=== PATIENT | male | born 1995 | race Caucasian/White ===

== ENCOUNTER 2017-05-05 11:47 | Emergency (ER) | payer OTHER ==
[~2017-05-05] VITALS: Wt 72.6 kg
[~2017-05-05 11:47] MED LIST: BACTRIM DS 8001 TAB PO; BENTYL; CLINDAMYCIN HC300 MG PO; CYCLOBENZAPRINE5 M3 PO; DOXYCYCLINE100 M3 PO; INTUNIV2 MG PO; KEFLEX500 MG PO; LIQUID PRED5 MG/5 ML PO; LOMOTIL 0.025 M1 TA1 PO; MEDROL DOSEPAK4 MG PO; MULTI VIT W/FLU1 CTB PO; Motrin,Rufen800 MG PO; NORCO 325 MG-51 TAB PO; NORCO 5-325 TA1 EACH PO; Orphenadrine C100 MG PO; PEN-VK500 MG PO; PERCOCET 325 MG1 TA2 PO; PERIACTIN2 MG/5ML PO; ULTRAM50 MG PO; VYVANSE20 MG PO; VYVANSE30 MG PO; ZANTAC150 MG PO; ZITHROMAX Z PA250 MG PO; ZOFRAN ODT4 MG SL; [UNRECOGNIZED DRUG - OTHER]
[2017-05-05] MEDS ORDERED: AMOXICILLIN500 M2 PO (12:07)
== END 2017-05-05 12:52 | disposition home or self-care (01) ==
LOC: ED 11:47
DX: K08.89 Other specified disorders of teeth and supporting structures (principal); R51 Headache; G43.909 Migraine, unspecified, not intractable, without status migrainosus

== ENCOUNTER 2017-05-27 18:55 | Emergency (ER) | payer OTHER ==
[~2017-05-27] VITALS: Ht 182 cm; Wt 70.3 kg
[~2017-05-27 18:55] MED LIST changes: +AMOXICILLIN500 M2 PO
[2017-05-27 19:41] LABS: BASO # 0.1 10*3/uL (0.0-0.1); BASO % 0.5 % (0.0-1.0); EOS # 0.1 10*3/uL (0.0-0.4); EOS % 1.1 % (1.0-4.0); HEMATOCRIT 41.5 % (42.0-52.0); HEMOGLOBIN 14.4 g/dl (14.0-18.0); LYMPH # 2.9 10*3/uL (1.3-4.4); LYMPH % 28.4 % (27.0-41.0); MEAN CELL VOLUME 86.5 fl (80.0-94.0); MEAN CORPUSCULAR HGB CONC 34.7 g/dl (33.0-37.0); MONO # 0.5 10*3/uL (0.1-1.0); MONO % 5.2 % (3.0-9.0); NEUT # 6.7 10*3/uL (2.3-7.9); NEUT % 64.4 % (47.0-73.0); PLATELET COUNT AUTOMATED 148 10*3/uL (130-400); RED CELL DISTRI WIDTH 12.5 % (0-14.5); WHITE BLOOD COUNT 10.4 10*3/uL (4.8-10.8)
[2017-05-27 20:03] LABS: BILIRUBIN NEGATIVE (NEGATIVE); BLOOD NEGATIVE (NEGATIVE); CLARITY CLEAR (CLEAR); COLOR YELLOW (YELLOW); GLUCOSE NEGATIVE (NEGATIVE); KETONE NEGATIVE (NEGATIVE); LEUKO ESTERASE NEGATIVE (NEGATIVE); NITRITE NEGATIVE (NEGATIVE); PH 5.5 (5.0-9.0); SPECIFIC GRAVITY <= 1.005 (1.005-1.030); UROBILINOGEN 0.2 E.U./dl (0.2-1.0)
[2017-05-27 20:04] LABS: ACETAMINOPHEN (TYLENOL) < 2.0 ug/ml (10-30); ALBUMIN 3.8 gm/dl (3.1-4.5); ALKALINE PHOSPHATASE 52 U/L (45-117); BUN 11 mg/dl (7-24); CHLORIDE 105 mmol/L (98-107); ETHYL ALCOHOL < 3.0 mg/dl (<3); POTASSIUM 3.3 mmol/L (3.5-5.1); SGOT/AST 13 IU/L (3-35); SGPT/ALT 18 U/L (12-78); SODIUM 139 mmol/L (136-145); TOTAL PROTEIN 6.5 gm/dL (6.4-8.2)
[2017-05-27 20:13] LABS: BACTERIA TRACE; RBC 0-2 rbc/hpf (0-2); URINE AMPHETAMINES < 1000 (1000ng/ml); URINE BARBITURATES < 200 (200ng/ml); URINE BENZODIAZEPINES > 200 (200ng/ml); URINE CANNABINOIDS (THC) > 50 (50ng/ml); URINE COCAINE < 300 (300ng/ml); URINE METHADONE < 300 (300ng/ml); URINE OPIATES > 300 (300ng/ml); WBC 0-2 wbc/hpf (0-5)
[2017-05-27 20:24] LABS: URINE PHENCYCLIDINE < 25 (25ng/ml)
== END 2017-05-27 20:54 | disposition home or self-care (01) ==
LOC: ED 18:55
PROVIDERS: Emergency Medicine Emergency Medical Services
DX: F19.10 Other psychoactive substance abuse, uncomplicated (principal); F90.9 Attention-deficit hyperactivity disorder, unspecified type

== ENCOUNTER 2017-08-28 21:53 | Emergency (ER) | payer SELFPAY ==
[~2017-08-28] VITALS: Ht 177.8 cm; Wt 81.6 kg
[2017-08-28] MEDS ORDERED: SEPTDS PO (22:18)
[2017-08-28] MEDS ORDERED: CLINDAMYCIN HC300 MG PO (22:18)
[2017-08-28] MEDS ORDERED: ANAPROX DS550 MG PO (23:21)
== END 2017-08-28 23:37 | disposition home or self-care (01) ==
LOC: ED 21:53
DX: S06.2X0A Diffuse traumatic brain injury without loss of consciousness, initial encounter (principal); S61.253A Open bite of left middle finger without damage to nail, initial encounter; S80.211A Abrasion, right knee, initial encounter; Y04.1XXA Assault by human bite, initial encounter; Y93.89 Activity, other specified; Y92.89 Other specified places as the place of occurrence of the external cause; Y99.9 Unspecified external cause status

== ENCOUNTER 2018-09-19 03:07 | Emergency (ER) | payer OTHER ==
[~2018-09-19] VITALS: Ht 182.8 cm; Wt 72.6 kg
[~2018-09-19 03:07] MED LIST changes: +ANAPROX DS550 MG PO; +SEPTDS PO
[2018-09-19] MEDS ORDERED: IBU800 MG PO (03:33)
== END 2018-09-19 03:50 | disposition home or self-care (01) ==
LOC: ED 03:07
DX: S60.221A Contusion of right hand, initial encounter (principal); Z79.2 Long term (current) use of antibiotics; Z79.899 Other long term (current) drug therapy; W23.0XXA Caught, crushed, jammed, or pinched between moving objects, initial encounter; Y93.89 Activity, other specified; Y92.89 Other specified places as the place of occurrence of the external cause; Y99.8 Other external cause status

== ENCOUNTER 2018-10-15 12:48 | Emergency (ER) | payer OTHER ==
[~2018-10-15] VITALS: Ht 182.8 cm; Wt 68.0 kg
[~2018-10-15 12:48] MED LIST changes: +IBU800 MG PO
[2018-10-15] MEDS ORDERED: Motrin,Rufen800 MG PO (14:45)
== END 2018-10-15 14:50 | disposition home or self-care (01) ==
LOC: ED 12:48
DX: S00.81XA Abrasion of other part of head, initial encounter (principal); Y08.89XA Assault by other specified means, initial encounter; Y93.89 Activity, other specified; Y92.89 Other specified places as the place of occurrence of the external cause; Y99.8 Other external cause status

== ENCOUNTER → 2019-05-22 | Outpatient (CLI) | payer OTHER ==
[2019-05-23 18:05] LABS: BARBITURATE, URINE Negative ng/mL (Cutoff=200); CANNABINOID, URINE Negative ng/mL (Cutoff=20); CREATININE, UR 184.9 mg/dL (20.0-300.0); PH URINE 6.6 (4.5-8.9)
== END | disposition home or self-care (01) ==
LOC: LAB 12:50
PROVIDERS: Physician Assistant
DX: Z51.81 Encounter for therapeutic drug level monitoring (principal); Z79.899 Other long term (current) drug therapy

== ENCOUNTER 2020-01-27 21:07 | Emergency (ER) | payer OTHER ==
[~2020-01-27] VITALS: Ht 182.8 cm; Wt 68.0 kg
== END 2020-01-27 23:49 | disposition home or self-care (01) ==
LOC: ED 21:07
DX: R09.89 Other specified symptoms and signs involving the circulatory and respiratory systems (principal)

== ENCOUNTER 2021-04-15 15:15 | Emergency (ER) | payer OTHER ==
[~2021-04-15] VITALS: Wt 72.6 kg
== END 2021-04-15 18:15 | disposition left against medical advice (07) ==
LOC: ED 15:15
DX: B37.0 Candidal stomatitis (principal); Z53.21 Procedure and treatment not carried out due to patient leaving prior to being seen by health care provider

== ENCOUNTER 2021-04-18 15:16 | Emergency (ER) | payer OTHER ==
[~2021-04-18] VITALS: Ht 182.8 cm; Wt 74.8 kg
[2021-04-18] MEDS ORDERED: CLOTRIMAZOLE TR10 MG MM (17:10)
== END 2021-04-18 17:30 | disposition home or self-care (01) ==
LOC: ED 15:16
DX: K14.6 Glossodynia (principal); K13.29 Other disturbances of oral epithelium, including tongue